=== PATIENT | male | born 1975 | race Hispanic/Latino ===

== ENCOUNTER 2024-04-08 17:16 | Emergency (ER) | payer OTHER ==
[~2024-04-08] VITALS: Ht 165.1 cm; Wt 65.3 kg
[2024-04-08 17:24] VITALS: TEMP 99.2
[2024-04-08 18:00] VITALS: PULSE 106; RESP 18; O2SAT 100
== END 2024-04-08 18:30 | disposition home or self-care (01) ==
LOC: ER 18:03
DX: R60.9 Edema, unspecified (principal); C06.89 Malignant neoplasm of overlapping sites of other parts of mouth; F17.210 Nicotine dependence, cigarettes, uncomplicated
CPT/HCPCS: 99282

== ENCOUNTER 2024-06-18 18:32 | Emergency (ER) | payer OTHER ==
[~2024-06-18] VITALS: Ht 165.1 cm; Wt 65.3 kg
[2024-06-18 19:23] LABS: BASOPHILS % 0.5 % (0.0-1.0); EOSINOPHILS # (AUTO) 0.1 (0.0-0.4); EOSINOPHILS % 1.8 % (0.0-6.0); HEMATOCRIT 26.2 % (38.2-49.6); HEMOGLOBIN 8.2 g/dL (14.0-18.0); LYMPHOCYTES # (AUTO) 0.6 (1.0-3.2); LYMPHOCYTES % 16.2 % (18.0-39.1); MEAN CORPUSCULAR HEMOGLOBIN 29.7 pg (28-32); MEAN CORPUSCULAR HGB CONC 31.3 g/dL (31-35); MEAN CORPUSCULAR VOLUME 94.9 fL (81-99); MONOCYTES # (AUTO) 0.3 (0.2-0.8); MONOCYTES % 8.2 % (4.4-11.3); NEUTROPHILS # (AUTO) 2.8 (2.1-6.9); RED BLOOD COUNT 2.76 x10e6/uL (4.3-5.7); WHITE BLOOD COUNT 3.89 x10e3/uL (4.8-10.8)
[2024-06-18 19:26] LABS: PLATELET COUNT 97 x10e3/uL (140-360)
[2024-06-18 19:41] LABS: INR 1.07; PROTHROMBIN TIME 14.5 seconds (11.9-14.5)
[2024-06-18 19:42] LABS: PARTIAL THROMBOPLASTIN TIME 32.6 seconds (23.8-35.5)
[2024-06-18 19:50] LABS: ALBUMIN 3.2 g/dL (3.5-5.0); ALBUMIN/GLOBULIN RATIO 0.8 (0.8-2.0); ANION GAP 13.2 mmol/L (8-16); BILIRUBIN,TOTAL 0.8 mg/dL (0.2-1.2); CALCIUM 8.7 mg/dL (8.4-10.2); CREATININE, SERUM 0.7 mg/dL (0.72-1.25); POTASSIUM 4.2 mmol/L (3.5-5.1); TOTAL PROTEIN 7.1 g/dL (6.5-8.1)
[2024-06-18 20:12] VITALS: PULSE 70; RESP 17; TEMP 98
[2024-06-18 20:22] VITALS: BP 114/80; PULSE 70; RESP 17; TEMP 98; O2SAT 100
== END 2024-06-18 20:32 | disposition other institution (70) ==
LOC: ER 18:48
DX: L76.22 Postprocedural hemorrhage of skin and subcutaneous tissue following other procedure (principal); I10 Essential (primary) hypertension; Z85.828 Personal history of other malignant neoplasm of skin
CPT/HCPCS: 36415; 80053; 85025; 85610; 85730; 99284